=== PATIENT | female | born 1970 | race Caucasian/White ===

== ENCOUNTER → 2019-12-07 09:27 | Outpatient (CLI) | payer OTHER, SELFPAY ==
[2019-12-08 16:36] LABS: Covid-19 Nasal PCR Sendout UK Not Detected
== END ==
PROVIDERS: PCP Internal Medicine Gastroenterology; Visit Provider Internal Medicine Gastroenterology
DX: U07.1 COVID-19 (principal)
CPT/HCPCS: U0003

== ENCOUNTER 2024-04-03 15:28 | Outpatient (CLI) | payer OTHER, SELFPAY ==
[2024-04-03 15:59] LABS: Basophils % 0.8 % (0.1-2.0); Eosinophils # 0.1 K/mm3 (0.0-0.4); Eosinophils % 2.6 % (0.1-12.0); Hematocrit 35.2 % (37.0-47.0); Hemoglobin 11.5 g/dL (12.2-16.2); Mean Corpuscular HGB Conc 32.6 g/dL (31.8-35.4); Mean Corpuscular Hemoglobin 25.3 pg (27.0-31.2); Mean Corpuscular Volume 77.7 fl (81-99); Monocytes # 0.3 K/mm3 (0.1-1.0); Monocytes % 7.2 % (1.7-9.3); Neutrophils # 1.9 K/mm3 (1.8-7.8); Neutrophils % 43.4 % (37.0-80.0); Platelet Count 273 K/mm3 (142-424); Red Blood Count 4.53 M/mm3 (4.20-5.40); Red Cell Distribution Width 16.4 % (11.5-17.5); White Blood Count 4.3 K/mm3 (4.8-10.8)
[2024-04-03 16:46] LABS: 25-OH Vitamin D, Total 36.9 ng/mL (30-100)
[2024-04-03 18:06] LABS: Iron 53 ug/dL (37-170)
[2024-04-03 18:42] LABS: Ferritin 5.16 ng/ml (11.1-264)
[2024-04-03 19:48] LABS: Total Iron Binding Capacity 354 ug/dL (265-497)
[2024-04-03 20:31] LABS: Vitamin B12 253 pg/mL (239-931)
== END 2024-04-03 23:59 | disposition home or self-care (01) ==
LOC: LAB 15:29
PROVIDERS: PCP Internal Medicine Gastroenterology; Visit Provider Internal Medicine Gastroenterology
DX: D64.9 Anemia, unspecified (principal); E53.8 Deficiency of other specified B group vitamins; E55.9 Vitamin D deficiency, unspecified
CPT/HCPCS: 36415; 82306; 82607; 82728; 83540; 83550; 85025